=== PATIENT | male | born 1960 ===

== ENCOUNTER 2018-12-28 18:24 | Emergency (ER) | payer OTHER ==
[~2018-12-28] VITALS: Ht 167.6 cm; Wt 72.6 kg
[2018-12-28 19:02] LABS: PLATELET COUNT 264 K/uL (142-355)
[2018-12-28 19:44] LABS: POTASSIUM 2.9 mmol/L (3.6-5.2); SODIUM 139 mmol/L (136-145)
[2018-12-28 22:50] VITALS: BP 142/73; TEMP 97.7
== END 2018-12-28 22:50 | disposition home or self-care (01) ==
LOC: ED 18:24
PROVIDERS: Family Medicine
DX: I95.9 Hypotension, unspecified (principal); E11.9 Type 2 diabetes mellitus without complications; E87.6 Hypokalemia; R00.0 Tachycardia, unspecified
CPT/HCPCS: 36415; 80053; 80320; 82550; 82962; 84484; 85027; 93005; 94664; 96360; 96375; 99284; J1200; J2930